=== PATIENT | female | born 1955 | race Caucasian/White ===

== ENCOUNTER → 2020-04-17 | Outpatient (CLI) | payer BC, MEDICARE ==
--- NOTE | 2020-04-18 11:47 | Diagnostic Imaging Report ---
CT THORACIC SPINE WO HISTORY: vertebral compression fracture COMPARISON: None. TECHNIQUE: Axial CT images of the thoracic spine were obtained without intravenous contrast. Coronal/sagittal reformations were created. One or more of the following dose reduction techniques were used: Automated exposure control, adjustment of the mA and/or kV according to patient size, and/or utilization of iterative reconstruction technique. FINDINGS: Thoracic kyphosis is preserved. Mild thoracic dextroscoliosis is present. There is no significant subluxation. Mild bone demineralization limits evaluation. Moderate L1 vertebral compression fracture (with up to 50% loss of vertebral body height anteriorly). The fracture is overall well corticated, which suggests chronicity. There is at least mild canal stenosis at T12-L1 and L1-L2 due to mild fracture retropulsion and posterior disc osteophyte complexes. Associated mild to moderate bilateral L1-L2 foraminal stenoses are due to disc bulge and facet arthrosis. Otherwise, no definite acute fracture or compression deformity is seen. Small, nonaggressive lucent lesion in the right T3 vertebral body with associated trabeculation is likely a benign hemangioma. No gross spinal canal mass is seen. The paravertebral and paraspinal soft tissues are unremarkable. Underlying mild multilevel spondylotic changes are present. No other areas of significant canal stenosis are seen. Mild bilateral T11-T12 foraminal stenoses are due to disc bulge and facet arthrosis. Prominent lower cervical spine spondylosis is partially imaged. Aortic calcifications are present. Mild dependent opacities in both lungs may be due to atelectasis. Surgical clips in the gallbladder fossa are partially imaged. IMPRESSION: 1. Moderate L1 vertebral compression fracture appears chronic. There is at least mild canal stenosis at T12-L1 and L1-L2 due to mild fracture retropulsion and posterior disc osteophyte complexes. 2. Otherwise, no acute osseous abnormalities. 3. Underlying mild multilevel spondylosis without other areas of significant canal stenosis. 4. Mild T11-T12 and mild to moderate L1-L2 bilateral degenerative foraminal stenoses. Signed by: Dr. Froylan Sexton M.D. on 04/18/2020 11:44 AM
== END ==
LOC: CT 11:18
PROVIDERS: ATTEND Family Medicine
DX: S22.080A Wedge compression fracture of T11-T12 vertebra, initial encounter for closed fracture (principal)
CPT/HCPCS: 72128

== ENCOUNTER → 2021-08-04 | Day surgery (SDC) | payer MEDICARE, BC ==
[2021-08-02 09:55] LABS: BASOPHILS % 0.7 % (0.0-1.0); EOSINOPHILS # (AUTO) 0.1 (0.0-0.4); EOSINOPHILS % 2.2 % (0.0-6.0); HEMATOCRIT 41.7 % (34.2-44.1); HEMOGLOBIN 13.2 g/dL (12.0-16.0); LYMPHOCYTES % 34.1 % (18.0-39.1); MEAN CORPUSCULAR HEMOGLOBIN 28.1 pg (28-32); MEAN CORPUSCULAR HGB CONC 31.7 g/dL (31-35); MEAN CORPUSCULAR VOLUME 88.7 fL (81-99); MONOCYTES # (AUTO) 0.5 (0.2-0.8); MONOCYTES % 7.8 % (4.4-11.3); NEUTROPHILS # (AUTO) 3.2 (2.1-6.9); NEUTROPHILS % 54.9 % (38.7-80.0); PLATELET COUNT 177 x10e3/uL (140-360); RED CELL DISTRIBUTION WIDTH 13.2 % (11.7-14.4)
[~2021-08-04] MED LIST: HYOSCYAMINE SULFATE 0.5 MG/ML INJ ONE; LEXAPRO20 MG PO; LIDOCAINE HCL 2% LOCAL INJ 5 ML SDV VIAL INJ ONE; LOSARTAN-HCTZ1 EAC2 PO; MIDAZOLAM HCL 2 MG/2 ML VIAL ONE; NAMENDA5 MG PO; NEURONTIN300 MG PO; POTASSIUM CHLO20 ME1 PO; PROPOFOL IV EMULSION 10 MG/ML 20 ML VIAL ONE; VESICARE5 MG PO
[2021-08-04 14:15] VITALS: BP 118/76
== END | disposition home or self-care (01) ==
LOC: OR 12:13
PROVIDERS: ATTEND Internal Medicine Gastroenterology
DX: Z12.11 Encounter for screening for malignant neoplasm of colon (principal); D12.2 Benign neoplasm of ascending colon; K57.30 Diverticulosis of large intestine without perforation or abscess without bleeding; Z71.3 Dietary counseling and surveillance; I10 Essential (primary) hypertension; R73.03 Prediabetes; F32.A Depression, unspecified; Z01.810 Encounter for preprocedural cardiovascular examination; Z01.812 Encounter for preprocedural laboratory examination; Z20.822 Contact with and (suspected) exposure to COVID-19; Z79.899 Other long term (current) drug therapy; Z68.36 Body mass index [BMI] 36.0-36.9, adult; Z87.442 Personal history of urinary calculi
CPT/HCPCS: 36415; 45380; 85025; 88305; 93005; J1980; J2001; J2250; J2704; U0002

== ENCOUNTER → 2021-11-19 | Outpatient (CLI) | payer MEDICARE, BC ==
[~2021-11-19] MED LIST changes: -HYOSCYAMINE SULFATE 0.5 MG/ML INJ ONE; -LIDOCAINE HCL 2% LOCAL INJ 5 ML SDV VIAL INJ ONE; -MIDAZOLAM HCL 2 MG/2 ML VIAL ONE; -PROPOFOL IV EMULSION 10 MG/ML 20 ML VIAL ONE
== END ==
LOC: MAMMO 09:26
PROVIDERS: ATTEND Family Medicine
DX: Z12.31 Encounter for screening mammogram for malignant neoplasm of breast (principal)
CPT/HCPCS: 77067

== ENCOUNTER → 2024-10-13 | Outpatient (REF) | payer MEDICARE | LOC: MAMMO 13:20 | PROVIDERS: ATTEND Family Medicine | DX: Z12.31 Encounter for screening mammogram for malignant neoplasm of breast (principal); M85.88 Other specified disorders of bone density and structure, other site | CPT/HCPCS: 77067; 77080 ==